=== PATIENT | male | born 1980 | race Two or more races ===

== ENCOUNTER 2021-10-12 09:10 | Outpatient (CLI) | payer OTHER | END 2021-10-12 23:59 | disposition home or self-care (01) | LOC: LAB 09:10 | PROVIDERS: ATTEND Specialist | DX: Z01.812 Encounter for preprocedural laboratory examination (principal); Z20.822 Contact with and (suspected) exposure to COVID-19 | CPT/HCPCS: C9803; U0003 ==

== ENCOUNTER 2022-06-21 12:02 | Outpatient (CLI) | payer OTHER | END 2022-06-21 23:59 | disposition home or self-care (01) | LOC: LAB 12:02 | PROVIDERS: ATTEND Specialist | DX: Z01.812 Encounter for preprocedural laboratory examination (principal); Z20.822 Contact with and (suspected) exposure to COVID-19 | CPT/HCPCS: U0003; C9803 ==

== ENCOUNTER 2022-06-28 06:08 | Day surgery (SDC) | payer OTHER ==
--- NOTE | 2022-06-28 06:10 | NUR ---
RN NOTES; RECEIVED PT FROM ER AMBULATORY IN RM 325-2,AOX4 ABLE TO MAKE NEEDS KNOWN,NO SIGN SOB/DISTRSS NOTED,V/S TAKEN AND RECORDED,BELONGING COUNT AND RECORDED.PT HERE FOR DAY SURGERY.WILL ENDORSED TO NEXT SHIFT.
--- NOTE | 2022-06-28 07:23 | NUR ---
MS RN OPENING NOTES RECEIVED PT IN BED AWAKE, AOX4. ABLE TO MAKE NEEDS KNOWN, DENIES PAIN OR ANY DISCOMFORTS AT THIS TIME. ON ROOM AIR, TOLERATING WELL, NO SOB NOTED. PT FOR RIGHT SHOULDER ARTHROSCOPY, LABRAL REPAIR AND BICEPS TENODESIS TODAY, NPO MAINTAINED. INSERTED IV ACCESS ON RIGHT HAND G#22 AND SECURED WITH TAPE. SAFETY MEASURES IN PLACE: BED IN LOWEST LOCKED POSITION, SR-UP X2 AND CALL LIGHT W/IN REACH. WILL CONTINUE WITH POC.
[2022-06-28] MEDS ORDERED: TRANEXAMIC ACID 3,000 MG in SODIUM CHLORIDE IRRIG SOLUTION 70 ML IR ONE (08:30)
--- NOTE | 2022-06-28 09:02 | NUR ---
RN NOTES PT PICKED-UP FOR SURGERY
[2022-06-28] MEDS ORDERED: BUPIVACAINE 0.25% 75 MG/30 ML VIAL ONE ×2 (10:32→10:41)
[2022-06-28] MEDS ORDERED: EPINEPHRINE (1:1000) 1 MG/ML AMPUL ONE (10:41)
[2022-06-28] MEDS ORDERED: FENTANYL PF 100MCG/2ML AMPUL ONE (12:34)
[2022-06-28 13:00] VITALS: BP 137/77
--- NOTE | 2022-06-28 13:02 | NUR ---
RN notes Pt returned to unit @ 1300 accompanied by 2 O.R. nurses via his bed s/p Right shoulder arthroscopy, arthroscopic labral repair and subpectoral biceps tenodesis by Dr Johnson. Pt is awake, alert and oriented x4. verbally responsive with no c/o pain at this time. On room air, tolerating well, no sob noted. V/S checked, stable and recorded. Pt noted with dressing on right shoulder C/D/I with sling in place to right arm. New IV access noted on left hand g#20 intact and patent. All post-op orders received and will carry out. Safety measures maintained: Bed in lowest locked position with side-rails up x2. call light and tray table w/i easy reach of pt. Will close monitor pt.
[2022-06-28 13:15] VITALS: BP 137/84
[2022-06-28] MEDS ORDERED: HYDROCODONE/APAP 5/325MG TABLET PO PRN ×2 (13:30→14:30)
[2022-06-28 13:45] VITALS: BP 145/71
[2022-06-28 14:00] VITALS: BP 144/71
[2022-06-28 14:30] VITALS: BP 148/73
--- NOTE | 2022-06-28 15:16 | NUR ---
RN NOTES SPECIMEN FOR MRSA OF RIGHT NARE DONE AND CALLED LAB TO PICK-UP SPECIMEN.
--- NOTE | 2022-06-28 15:22 | NUR ---
RN NOTES PATIENT COMPLAINED OF ACHING SHOULDER PAIN. SCALE OF PAIN WAS 5 OUT OF 10. PRN NORCO 5/325 MG TAB GIVEN AT 1520. WILL CONTINUE AND REASSESS PATIENT. WILL CONTINUE TO MONITOR
[2022-06-28 15:30] VITALS: BP 137/77
--- NOTE | 2022-06-28 16:28 | NUR ---
RN DISCHARGED NOTES PT DISCHARGED HOME IN STABLE CONDITION. A/O X4. ABLE TO MAKE NEEDS KNOWN. ALL BELONGINGS ACCOUNTED FOR AND PT SIGNED BELONGINGS LIST. IV ACCESS ON LEFT HAND G#2O REMOVED WITH NO ACTIVE BLEEDING NOTED, DRY DRESSING APPLIED AT SITE. DRESSING ON RIGHT SHOULDER C/D/I. PT WITH RIGHT ARM SLING IN PLACE. HEALTH TEACHINGS/DISCHARGE INSTRUCTIONS GIVEN TO PT AND GIRLFRIEND, BOTH VERBALIZED UNDERSTANDING. NAME ARMBAND REMOVED. PT LEFT UNIT @ 1620 AMBULATORY ACCOMPANIED BY HIS GIRLFRIEND ANNA. PHAN AND CHARGE NURSE AWARE OF DISCHARGE.
== END 2022-06-28 19:00 | disposition home or self-care (01) ==
LOC: DS 06:08 → MED 07:27 → UNDOADMIN 07:27 → UNDODISIN 16:25 → DS 19:00
PROVIDERS: ATTEND Specialist
DX: S46.811A Strain of other muscles, fascia and tendons at shoulder and upper arm level, right arm, initial encounter (principal); X58.XXXA Exposure to other specified factors, initial encounter; Y93.89 Activity, other specified; Y92.89 Other specified places as the place of occurrence of the external cause; Y99.8 Other external cause status
CPT/HCPCS: 29806; 86850; 36415; 87081; 29828; J0690; J0461; J2704; J0171; J3010; J3490 ×3; J1885; C1713 ×2; J7050; A4217 ×2; G0378